=== PATIENT | female | born 1975 | race African-American/Black ===

== ENCOUNTER → 2018-02-04 | Outpatient (CLI) | payer OTHER | LOC: RAD 07:29 | DX: Z12.31 Encounter for screening mammogram for malignant neoplasm of breast (principal) ==

== ENCOUNTER 2018-09-04 08:52 | Emergency (ER) | payer OTHER ==
[~2018-09-04] VITALS: Ht 162.6 cm; Wt 119.3 kg
[2018-09-04] MEDS ORDERED: TURMERIC 500 M1 EACH PO (09:13)
[2018-09-04 11:09] LABS: HEMATOCRIT 35.2 % (37.0-47.0); HEMOGLOBIN 11.6 gm/dL (12.0-15.0); MCH 28.3 pg (26.0-34.0); MCHC 32.9 g/dL (28.0-37.0); RBC 4.09 mil/uL (4.20-5.00); RDW 15.2 % (10.5-14.5); WBC 6.1 thou/uL (4.0-11.0)
[2018-09-04 11:32] LABS: ANION GAP 7 mmol/L (7-16); BUN 12 mg/dL (7-18); CALCIUM 9.1 mg/dL (8.5-10.1); CHLORIDE 104 mmol/L (98-107); CO2 26 mmol/L (21-32); CREATININE 0.6 mg/dL (0.6-1.0); GLUCOSE 94 mg/dL (74-106); POTASSIUM 4.2 mmol/L (3.5-5.1); SODIUM 137 mmol/L (136-145)
[2018-09-04 11:44] LABS: TROPONIN-I <0.06 ng/mL (<0.06)
[2018-09-04] MEDS ORDERED: ANTIVERT25 MG PO (12:22)
[2018-09-04 12:25] VITALS: BP 140/79
--- NOTE | 2018-09-05 09:24 | EKG ---
[place] [address] [facility] [place] [address] ELECTROCARDIOGRAM REPORT Name: VIVI MENA Room #: [facility] Romana#: [id number] ������������������ Admission: 09/04/18 ������������������ Attend Phys: Discharge: 09/04/18 ������������������ Date of : 73 Report #: [id number] ����������������������������������������������������������������� [id number] THIS REPORT FOR: //name// [facility] ED Test Date: 2018-09-04 Test Time: 09:19:02 Pat Name: VIVI MENA Department: Room: Gender: F [employer] Operator: SAVANNAH : 1975 Requested By: Alannah Garza Order Number: [id number] MD: Yves Saez Measurements Intervals [place] Rate: 68 P: 32 TN: 166 QRS: 31 QRSD: 76 T: 8 QT: 391 QTc: 416 Interpretive Statements Sinus rhythm No significant abnormality No previous ECG available for comparison Electronically Signed On 09-05-2018 9:24:00 CDT by Yves Saez [email or web address] ��������������������������������������������� <ELECTRONICALLY SIGNED> ���������������������������������������� By: Yves Saez MD, [facility] ��������������������������������������������� 09/05/18 0924 8 Yves Saez MD, FACC /EPI
== END 2018-09-04 12:33 | disposition home or self-care (01) ==
LOC: ER 08:52
PROVIDERS: Emergency Medicine
DX: R42 Dizziness and giddiness (principal); H66.90 Otitis media, unspecified, unspecified ear; Z98.890 Other specified postprocedural states

== ENCOUNTER → 2020-01-20 | Outpatient (CLI) | payer OTHER ==
[~2020-01-20] MED LIST: ANTIVERT25 MG PO; TURMERIC 500 M1 EACH PO
[2020-01-20 10:34] LABS: ABSOLUTE NEUTROPHILS 5.6 thou/uL (1.4-8.2); BASOPHILS 0.5 % (0.0-2.0); EOSINOPHILS 0.9 % (0.0-3.0); HEMATOCRIT 35.1 % (37.0-47.0); HEMOGLOBIN 11.5 gm/dL (12.0-15.0); LYMPHOCYTES 22.4 % (24.0-44.0); MCHC 32.8 g/dL (28.0-37.0); MCV 85.2 fL (80.0-100.0); MONOCYTES 6.4 % (1.0-8.0); PLATELET COUNT 278 thou/uL (150-400); POLYS 69.8 % (36.0-66.0); RBC 4.11 mil/uL (4.20-5.00); RDW 15.5 % (10.5-14.5)
[2020-01-20 10:51] LABS: ALBUMIN 4.1 g/dL (3.4-5.0); ANION GAP 9 mmol/L (7-16); BUN 10 mg/dL (7-18); CALCIUM 9.2 mg/dL (8.5-10.1); CHLORIDE 103 mmol/L (98-107); CHOLESTEROL 194 mg/dL (<200); CO2 28 mmol/L (21-32); CREATININE 0.8 mg/dL (0.6-1.0); GLUCOSE 103 mg/dL (74-106); HDL CHOLESTEROL 53 mg/dL (>40); LDL CHOLESTEROL 130 mg/dL (<100); POTASSIUM 3.8 mmol/L (3.5-5.1); SGOT 10 U/L (15-37); SGPT 15 U/L (30-65); SODIUM 140 mmol/L (136-145); TC:HDL 3.7 Ratio (Not establshd); TOTAL BILIRUBIN 0.4 mg/dL (0.2-1.0); TOTAL PROTEIN 8.4 g/dL (6.4-8.2); TRIGLYCERIDE 56 mg/dL (<150); VLDL 11 mg/dL (<40)
[2020-01-21 01:06] LABS: GLYCOHEMOGLOBIN (HGB A1C) 5.3 % (4.8-5.6)
== END ==
LOC: LAB 10:03
PROVIDERS: ATTEND Nurse Practitioner
DX: I10 Essential (primary) hypertension (principal); E55.9 Vitamin D deficiency, unspecified